=== PATIENT | female | born 1965 | race Caucasian/White ===

== ENCOUNTER → 2016-06-26 | Outpatient (CLI) | payer OTHER | LOC: LAB.NP 08:32 | PROVIDERS: ATTEND Family Medicine | DX: M81.0 Age-related osteoporosis without current pathological fracture (principal); R53.82 Chronic fatigue, unspecified; K90.0 Celiac disease ==

== ENCOUNTER → 2016-10-01 | Outpatient (CLI) | payer OTHER | END | disposition home or self-care (01) | LOC: GMA 16:33 | PROVIDERS: ATTEND Nurse Practitioner Family | DX: D51.3 Other dietary vitamin B12 deficiency anemia (principal) ==

== ENCOUNTER → 2018-06-25 | Outpatient (CLI) | payer OTHER ==
--- NOTE | 2018-06-25 14:16 | US ---
EXAM DESCRIPTION: Gall Bladder: ULTRASOUND. CLINICAL HISTORY: HEARTBURN COMPARISON: None. TECHNIQUE: Transabdominal scanning: Escobar-scale and Doppler modes. FINDINGS: Gallbladder: normal size, shape, echogenicity; no intraluminal stones or sludge. No fluid around the gallbladder. No wall thickening. 1.2 mm. Non-tender with transducer pressure. Common bile duct: caliber 2.6 mm within normal limits. Liver: normal echogenicity; contour liver capsule smooth where seen. No fluid around the liver. Intrahepatic biliary ducts normal caliber. Doppler hepatopedal flow portal vein.. Long axis right lobe 13.9 cm. Pancreas: normal size and echogenicity. Duct not seen. Abdominal aorta: Normal caliber from the proximal segment to the distal bifurcation. Atherosclerotic intimal changes. Right kidney: 9.3 cm long axis. Cortical thickness 13 mm with normal echogenicity. No hydronephrosis or large calcifications. IMPRESSION: Ultrasound of the gallbladder, ducts, liver, pancreas is unremarkable. Intimal wall thickening of the abdominal aorta but no aneurysm. Borderline thinning of the cortex of the right kidney. Normal echogenicity and otherwise unremarkable. Electronically signed by: Anurag Mata MD 06/25/2018 2:15 PM [employer]PER[employer] MANAGER
== END ==
LOC: US 09:01
PROVIDERS: ATTEND Family Medicine
DX: R12 Heartburn (principal)

== ENCOUNTER → 2019-04-19 | Outpatient (CLI) | payer OTHER ==
--- NOTE | 2019-04-19 16:44 | MAM ---
EXAM DESCRIPTION: 3D Screening BILATERAL : Digital Mammography. CLINICAL HISTORY: 53 years Female ANNUAL SCREENING . No complaints and no personal history of breast cancer. Mother with breast cancer at age 65. Menarche age 11. No childbirth. Postmenopausal 5+ years. No HRT. Lifetime risk of developing breast cancer (Tyrer-Cuzick model)(%): 15.8 COMPARISON: 2-D digital screening bilateral mammography 01 January 2012.. No prior reports available. TECHNIQUE: Bilateral CC and MLO projection full-field images, digital tomosynthesis mammographic technique. Bilateral digital 2-D full-field MLO images. CAD not available for tomosynthesis or 2-D images. FINDINGS: The breast parenchymal density pattern is: Scattered areas of fibroglandular density. No skin thickening or nipple retraction. Gas density in the mid third of the right breast on the prior study is either much smaller or absent. Nodular-type fibroglandular changes more visualized on the left. No significant change. Scattered solitary microcalcifications bilaterally. Small nodular mass densities in the mid left breast is also decreased in size. Unusually shaped mass density or cluster of cysts at the 6:00 position of the left breast 4 cm from the nipple. Widest dimension approximately 8 mm. No definite calcifications. Not well seen on the prior study. No new focal, stellate mass or density, focal asymmetry , and no suspicious microcalcifications right breast. IMPRESSION: BI-RADS CATEGORY: 0 - INCOMPLETE- Need additional imaging evaluation. FOLLOW-UP: Recall for additional imaging: Bilateral full-field LM projection 2-D and tomosynthesis images. Targeted left breast ultrasound of the region of interest.. Written communication concerning the IMPRESSION and Follow-up, will be mailed to the patient and referring health care provider. Electronically signed by: Anurag Mata MD 04/19/2019 4:42 PM TELECOMMUNICATIONS PROJECT MANAGER
== END ==
LOC: MAMMO 08:04
PROVIDERS: ATTEND Family Medicine
DX: Z12.31 Encounter for screening mammogram for malignant neoplasm of breast (principal)

== ENCOUNTER → 2019-06-17 | Outpatient (CLI) | payer OTHER ==
--- NOTE | 2019-06-17 11:51 | US ---
EXAM DESCRIPTION: 3D Diagnostic, Bilateral (accession [id number]), Breast,Left (accession [id number]): Ultrasound CLINICAL HISTORY: 54 yearsFemaleABNORMAL MAMMOGRAM mass density left breast. Lifetime risk of developing breast cancer (Tyrer-Cuzick model)(%): 15.8. COMPARISON: Bilateral screening digital breast tomosynthesis April 2019. TECHNIQUE: Bilateral LM projection full-field images, digital tomosynthesis technique. Bilateral 2-D digital full-field images: LM projection. CAD not available.. Transcutaneous scanning of the left breast utilizing romero-scale and Doppler modes. Scanning performed by the international editorial producer ; observation by Dr. Mata. FINDINGS: The breast parenchymal density pattern is: Scattered areas of fibroglandular density. No skin thickening or nipple retraction fibroglandular tissues are more nodular in the mid and anterior thirds. Mass density again visible 6:00-7:00 position anterior left breast 4 cm from the nipple. No associated microcalcifications. No new focal asymmetry , and no suspicious microcalcifications left breast. Ultrasound: Scanning of the left breast in the region of interest. Mixture of fibroglandular and fatty echotextures. 2.9 x 2.9 x 3.5 mm anechoic structure with circumscribed echogenic hickey nonvascular, no internal echoes, consistent with a cyst. Bilobed cyst slightly more anterior measuring 5.0 x 2.1 mm. Wider than tall orientation, circumscribed margins, posterior acoustic enhancement and nonvascular. IMPRESSION: Benign exam. Cysts in the left breast. BIRAD CATEGORY: 2 BENIGN FINDINGS. RECOMMENDATIONS: FOLLOW UP: Return to routine digital bilateral mammographic screening, one year interval from April 2019. Written communication explaining the IMPRESSION and follow-up, will be mailed to the patient and referring health care provider. The FINDINGS and the FOLLOW-UP plan were reviewed in person with the patient after the examination. According to the [employer], yearly mammograms are recommended starting at age 40 and continuing as long as a woman is in good health. Any breast change noted on a breast self-exam should be reported promptly to the patient's healthcare provider. Breast MRI is recommended for women with an approximately 20-25% or greater lifetime risk of breast cancer, including women with a strong family history of breast or ovarian cancer and women who have been treated for Hodgkin's disease. A negative mammographic report should not delay tissue diagnosis in patients with significant clinical history or physical findings. Extremely dense breast tissue limits the sensitivity of digital mammography. Electronically signed by: Anurag Mata MD 06/17/2019 11:49 AM [facility]
== END ==
LOC: MAMMO 10:02
PROVIDERS: ATTEND Family Medicine
DX: N60.02 Solitary cyst of left breast (principal)
CPT/HCPCS: 76641; 77066; G0279

== ENCOUNTER → 2020-02-17 | Outpatient (CLI) | payer BC, OTHER | LOC: GMAL 16:33 | PROVIDERS: ATTEND Family Medicine | DX: D51.3 Other dietary vitamin B12 deficiency anemia (principal); R53.83 Other fatigue; E55.9 Vitamin D deficiency, unspecified; I10 Essential (primary) hypertension; E78.49 Other hyperlipidemia ==

== ENCOUNTER → 2020-05-09 | Outpatient (CLI) | payer BC | LOC: GMA CAST 14:21 | PROVIDERS: ATTEND Family Medicine Sports Medicine | DX: R30.0 Dysuria (principal) ==